=== PATIENT | male | born 1985 | race Native Hawaiian/Other Pacific Islander ===

== ENCOUNTER 2020-02-15 01:23 | Emergency (ER) | payer BC, OTHER ==
[2020-02-15 01:50] LABS: BASOPHILS # (AUTO) 0.1 10^3/uL (0.0-0.1); BASOPHILS % (AUTO) 0.6 %; EOSINOPHILS # (AUTO) 0.3 10^3/uL (0.0-0.7); EOSINOPHILS % (AUTO) 3.5 %; HGB - HEMOGLOBIN 15.7 g/dL (14.0-18.0); LYMPHOCYTES # (AUTO) 2.9 10^3/uL (1.5-3.5); LYMPHOCYTES % (AUTO) 36.7 %; MEAN CORPUSCULAR HEMOGLOBIN 29.3 pg (27.0-31.0); MEAN CORPUSCULAR HGB CONC 34.7 g/dL (32.0-36.0); MEAN CORPUSCULAR VOLUME 84.5 fL (80.0-94.0); MEAN PLATELET VOLUME 8.5 fL (7.4-11.4); MONOCYTES # (AUTO) 0.6 10^3/uL (0.0-1.0); NEUTROPHILS % (AUTO) 51.8 %; PLT - PLATELET COUNT 244 10^3/uL (130-450); RED BLOOD COUNT 5.35 10^6/uL (4.70-6.10); RED CELL DISTRIBUTION WIDTH 11.9 % (12.0-15.0); WHITE BLOOD COUNT 7.8 x10^3/uL (4.8-10.8)
--- NOTE | 2020-02-15 01:50 | ED Physician Documentation ---
History of Present Illness - Stated complaint Stated Complaint: PALPITATIONS - Chief complaint Chief Complaint: Cardiac - History obtained from History obtained from: Patient - History of Present Illness Timing: How many days ago (5) - Additonal information Additional information: 34 y/o male is complaining of a sharp stabbing pain in the left chest that is brief and repeated. He is also noting that his heart is racing. He has polyuria but does not acknowledge polydypsia. Review of Systems Constitutional: reports: Fatigue. denies: Fever, Chills Eyes: denies: Decreased vision Ears: denies: Ear pain Nose: denies: Rhinorrhea / runny nose, Congestion Throat: denies: Sore throat Cardiac: reports: Chest pain / pressure, Palpitations. denies: Pedal edema, Calf pain Respiratory: reports: Dyspnea. denies: Cough, Wheezing GI: denies: Abdominal Pain, Nausea, Vomiting, Constipation, Diarrhea : denies: Dysuria, Frequency Skin: denies: Rash Musculoskeletal: denies: Neck pain, Back pain, Extremity pain Neurologic: denies: Generalized weakness, Focal weakness, Numbness PD PAST MEDICAL HISTORY - Past Medical History Past Medical History: No - Past Surgical History Past Surgical History: No - Present Medications Home Medications: Ambulatory Orders Medication Instructions Recorded Confirmed guaiFENesin/CODEINE [Robitussin AC] 10 ml PO Q6H PRN #240 ml 05/15/13 predniSONE [Deltasone] 40 mg PO DAILY 5 Days tablet 05/15/13 metFORMIN [Glucophage] 500 mg PO BIDWM #40 tablet 02/15/20 - Allergies Allergies/Adverse Reactions: Allergies Allergy/AdvReac Type Severity Reaction Status Date / Time No Known Drug Allergies Allergy Verified 05/15/13 19:17 - Social History Does the pt smoke?: No Smoking Status: Never smoker Does the pt drink ETOH?: No Does the pt have substance abuse?: No - Immunizations Immunizations are current?: Yes - POLST Patient has POLST: No PD ED PE NORMAL - Vitals Vital signs reviewed: Yes (tachy and hypertensive ) - General General: Alert and oriented X 3, No acute distress, Well developed/nourished - HEENT HEENT: Atraumatic, PERRL, EOMI - Neck Neck: Supple, no meningeal sign, No bony TTP - Cardiac Cardiac: No murmur, Other (tachy to 110 sitting up) - Respiratory Respiratory: No respiratory distress, Clear bilaterally - Abdomen Abdomen: Normal bowel sounds, Soft, Non tender, Non distended, No organomegaly - Back Back: No CVA TTP, No spinal TTP - Derm Derm: Normal color, Warm and dry, No rash - Extremities Extremities: No deformity, No edema - Neuro Neuro: Alert and oriented X 3, 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, No motor deficit, No sensory deficit, Normal speech Eye Opening: Spontaneous Motor: Obeys Commands Verbal: Oriented GCS Score: 15 - Psych Psych: Normal mood, Normal affect Results - Vitals Vitals: Vital Signs - 24 hr 02/15/20 02/15/20 02/15/20 01:27 02:25 04:13 Temperature 37.1 C Heart Rate 103 H 100 89 Respiratory 18 16 16 Rate Blood Pressure 148/93 H 151/85 H 136/87 H O2 Saturation 96 100 99 02/15/20 05:57 Temperature Heart Rate 88 Respiratory 16 Rate Blood Pressure 148/92 H O2 Saturation 99 Oxygen O2 Source Room air - EKG (time done) 0129 Rate: Rate (enter#) (104) Rhythm: Sinus tachycardia Ischemia: Non specific changes (to the inferior leads the T waves are inverted or flat ) Compare to prior EKG: Old EKG unavailable Computer interpretation: Agree with computer - Labs Labs: Laboratory Tests 02/15/20 02/15/20 02/15/20 01:30 01:30 01:30 WBC 7.8 RBC 5.35 Hgb 15.7 Hct 45.2 MCV 84.5 MCH 29.3 MCHC 34.7 RDW 11.9 L Plt Count 244 MPV 8.5 Neut # (Auto) 4.0 Lymph # (Auto) 2.9 [place] # (Auto) 0.6 Eos # (Auto) 0.3 Baso # (Auto) 0.1 Absolute Nucleated RBC 0.00 Nucleated RBC % 0.0 Sodium 133 L Potassium 3.8 Chloride 96 L Carbon Dioxide 26 Anion Gap 11.0 BUN 17 Creatinine 1.0 Estimated GFR (MDRD) 85 L Glucose 354 H POC Whole Bld Glucose Calcium 9.4 Total Bilirubin 0.8 AST 28 ALT 42 Alkaline Phosphatase 72 Troponin I High Sens 3.5 Total Protein 7.8 Albumin 4.2 Globulin 3.6 Albumin/Globulin Ratio 1.2 Lipase 31 02/15/20 02/15/20 02/15/20 03:51 04:47 05:52 WBC RBC Hgb Hct MCV MCH MCHC RDW Plt Count MPV Neut # (Auto) Lymph # (Auto) [place] # (Auto) Eos # (Auto) Baso # (Auto) Absolute Nucleated RBC Nucleated RBC % Sodium Potassium Chloride Carbon Dioxide Anion Gap BUN Creatinine Estimated GFR (MDRD) Glucose POC Whole Bld Glucose 289 H 379 H 238 H Calcium Total Bilirubin AST ALT Alkaline Phosphatase Troponin I High Sens Total Protein Albumin Globulin Albumin/Globulin Ratio Lipase - Rads (name of study) chest Radiology: Prelim report reviewed (Impression: No active cardiopulmonary disease demonstrated.), EMP read indepedently, See rad report Procedures - IVC sono (time) 0200 Bedside IVC sono: IVC measures (cm) (0.82), IVC collapsed c insp (cm) (complete), Dehydration (est 2+ liter deficit) PD MEDICAL DECISION MAKING - ED course Complexity details: reviewed results, re-evaluated patient, considered differential, d/w patient ED course: 34 y/o male complaining of palpitations Is found to be dehydrated on interrogation of the inferior vena cava and intravenous saline is begun. His laboratory work then demonstrates a blood glucose of 387 and further history from the patient indicates the polyuria without the polydipsia and he is symptomatically dehydrated from his newly diagnosed type 2 diabetes. He is unaware of a family history of diabetes and himself does not usually go to the doctor and does not have a doctor now. He is administered 2 liters of saline and his blood sugar improves to 289 and paradoxically higher than on admission after a second liter of saline. He is administered insulin regular IV 10 units and this brings his discharge sugar to 238. Departure - Departure Disposition: 01 Home, Self Care Clinical Impression: Dehydration Type 2 diabetes mellitus Qualifiers: Diabetes mellitus fci insulin use: without remote computer terminal operator use Diabetes mellitus complication status: with hyperglycemia Qualified Code(s): E11.65 - Type 2 diabetes mellitus with hyperglycemia Condition: Stable Instructions: Diabetes Meal Planning, Diabetes Ways Take Meds, Diabetes Type 2, ED Dehydration, ED Hyperglycemia New Susp Diabetes Follow-Up: [facility] [Provider Group] Prescriptions: metFORMIN [Glucophage] 500 mg PO BIDWM #40 tablet Forms: Activity restrictions Discharge Date/Time: 02/15/20 05:57
[2020-02-15 02:15] LABS: ALBUMIN 4.2 g/dL (3.2-5.5); ALBUMIN/GLOBULIN RATIO 1.2 (1.0-2.2); BILIRUBIN,TOTAL 0.8 mg/dL (0.2-1.0); CALCIUM 9.4 mg/dL (8.5-10.3); TOTAL PROTEIN 7.8 g/dL (6.7-8.2)
[2020-02-15] MEDS ORDERED: SODIUM CHLORIDE 0.9% 1,000 ML IV STA ×2 (02:22→02:46)
[2020-02-15] MEDS ORDERED: INSULIN REGULAR HUMAN 100 UNIT/1 ML 10 ML MDV IVP STA (04:59)
[2020-02-15 05:58] VITALS: BP 148/92
--- NOTE | 2020-02-15 11:46 | XRAY Report ---
PROCEDURE: Chest 1 View X-Ray INDICATIONS: chest pain TECHNIQUE: One view of the chest was acquired. COMPARISON: Prior chest radiograph, 05/15/2013 FINDINGS: Surgical changes and devices: None. Lungs and pleura: An incomplete inspiratory result is noted, with low lung volumes and crowding o f the vascular markings. No focal infiltrates are seen. No large pneumothorax or large pleural effusi on can be seen. Mediastinum: Mediastinal contours appear normal. Heart size is normal. Bones and chest wall: No suspicious bony lesions. Overlying soft tissues appear unremarkable. IMPRESSION: Limited portable chest examination, without an acute abnormality identified. Note: No significant discrepancy from the preliminary report. Reviewed by: Jr Powell MD on 02/15/2020 10:45 AM [facility] Approved by: Jr Powell MD on 02/15/2020 10:45 AM [facility] Station ID: [id number]
[2020-02-15 14:18] LABS: HEMOGLOBIN A1c% 12.1 % (4.27-6.07)
== END 2020-02-15 05:57 | disposition home or self-care (01) ==
LOC: ED 01:23
DX: E86.0 Dehydration (principal); E11.65 Type 2 diabetes mellitus with hyperglycemia; R00.0 Tachycardia, unspecified; R07.9 Chest pain, unspecified
CPT/HCPCS: 36415; 71045; 80053; 83036; 83690; 84484; 85025; 93005; 96360; 99284; J1815